=== PATIENT | male | born 1950 | race African-American/Black ===

== ENCOUNTER 2021-01-28 07:05 | Outpatient (CLI) | payer MEDICARE | END 2021-01-28 23:59 | disposition home or self-care (01) | LOC: CVU 07:05 | PROVIDERS: ATTEND Internal Medicine Cardiovascular Disease | DX: I08.2 Rheumatic disorders of both aortic and tricuspid valves (principal); I25.10 Atherosclerotic heart disease of native coronary artery without angina pectoris; I25.5 Ischemic cardiomyopathy | CPT/HCPCS: 93306; 93356 ==

== ENCOUNTER 2021-02-23 08:27 | Emergency (ER) | payer MEDICARE ==
[~2021-02-23] VITALS: Ht 180.3 cm; Wt 139.3 kg
--- NOTE | 2021-02-23 08:48 | NUR ---
Pt complains of left side neck pain starting last night, reports pain into left shoulder and left arm with moves neck. Pt denies recent trauma, sob, or CP.
--- NOTE | 2021-02-23 09:14 | NUR ---
ER [facility]ON [facility]ARA AT BEDSIDE FOR EVALUATION
[2021-02-23] MEDS ORDERED: MORPHINE SULFATE 4 MG/ML, 1ML IVPush PRN (09:30)
[2021-02-23] MEDS ORDERED: SODIUM CHLORIDE FLUSH 10ML SYR IVF ONE (09:30)
[2021-02-23] MEDS ORDERED: MORPHINE SULFATE 4 MG/ML, 1ML ONE (09:35)
[2021-02-23 09:39] LABS: BASOPHILS % (AUTO) 1 % (0-1); EOSINOPHILS % (AUTO) 0 % (1-7); LYMPHOCYTES % (AUTO) 13 % (22-44); MEAN CORPUSCULAR HEMOGLOBIN 30.7 pg (27.5-34.5); MEAN CORPUSCULAR HGB CONC 33.1 g/dL (33.2-36.2); MEAN PLATELET VOLUME 8.8 fL (7.4-10.4); MONOCYTES % (AUTO) 10 % (2-9); NEUTROPHILS % (AUTO) 76 % (42-75); PLATELET COUNT 181 x10^3/uL (130-400); RED BLOOD COUNT 4.76 x10^6/uL (4.38-5.82); RED CELL DISTRIBUTION WIDTH 14.7 % (9.4-14.8)
[2021-02-23 09:41] LABS: MD NO
[2021-02-23 09:50] LABS: ALBUMIN 3.5 g/dL (3.4-5.0); ANION GAP 3 mmol/L (5-15); CALCIUM 9.7 mg/dL (8.5-10.1); CHLORIDE 106 mmol/L (98-107); CREATININE 1.37 mg/dL (0.7-1.3)
[2021-02-23 09:54] LABS: TROPONIN I < 0.015 ng/mL (0.000-0.045)
[2021-02-23] MEDS ORDERED: DIAZEPAM 5 MG TABLET ONE (09:55)
[2021-02-23] MEDS ORDERED: DIAZEPAM 5 MG TABLET PO ONE (10:00)
[2021-02-23] MEDS ORDERED: KETOROLAC 30 MG/1 ML ONE (10:36)
[2021-02-23] MEDS ORDERED: KETOROLAC 30 MG/1 ML IM ONE (11:00)
--- NOTE | 2021-02-23 12:00 | NUR ---
Discharge instructions reviewed.
[2021-02-23 12:01] VITALS: BP 138/94
== END 2021-02-23 12:26 | disposition home or self-care (01) ==
LOC: ED 09:48
DX: S16.1XXA Strain of muscle, fascia and tendon at neck level, initial encounter (principal); Z76.0 Encounter for issue of repeat prescription; R07.89 Other chest pain; R06.02 Shortness of breath; I10 Essential (primary) hypertension; I25.2 Old myocardial infarction; X58.XXXA Exposure to other specified factors, initial encounter; Y93.89 Activity, other specified; Y92.89 Other specified places as the place of occurrence of the external cause; Y99.8 Other external cause status
CPT/HCPCS: 36415; 71045; 80048; 82040; 83880; 84484; 85025; 93005; 96372; 99285; J1885

== ENCOUNTER 2021-05-14 17:35 | Emergency (ER) | payer MEDICARE ==
[~2021-05-14] VITALS: Ht 180.3 cm; Wt 128.9 kg
[~2021-05-14 17:35] MED LIST: ATOR40TA78 PO; GABA-826 PO; INSU100I11 SQ-INSULIN; INSU100I13 SQ-INSULIN; LISI10TA19 PO; METF500T3 PO; METO-282 PO; MIRA50TA PO; ROSU5TAB12 PO; TAMS-11 PO; TRAM100T39 PO; [UNRECOGNIZED DRUG - CODE] PO
--- NOTE | 2021-05-14 19:20 | NUR ---
Pt ambulatory with steady gait from lobby to room
--- NOTE | 2021-05-14 19:40 | NUR ---
Pt arrived with complaints of high BG due to his primary care prescribing him the wrong medication, pt states that he should have Novolog and that they gave him Humalog instead. Pt said he tried to contact PCP but they have yet to return his call and sent him away from their office. Pt connected to BP and O2 monitors, positioned for comfort, BG 418 in triage. BLANCO MORFIN
[2021-05-14] MEDS ORDERED: SODIUM CHLORIDE 0.9% 1,000ML IVBOLUS ONE (21:30)
[2021-05-14 21:57] LABS: BASOPHILS % (AUTO) 1 % (0-1); EOSINOPHILS % (AUTO) 0 % (1-7); LYMPHOCYTES % (AUTO) 21 % (22-44); MEAN CORPUSCULAR HEMOGLOBIN 30.8 pg (27.5-34.5); MEAN CORPUSCULAR HGB CONC 32.9 g/dL (33.2-36.2); MEAN PLATELET VOLUME 8.8 fL (7.4-10.4); MONOCYTES % (AUTO) 10 % (2-9); NEUTROPHILS % (AUTO) 68 % (42-75); PLATELET COUNT 187 x10^3/uL (130-400); RED BLOOD COUNT 4.79 x10^6/uL (4.38-5.82); RED CELL DISTRIBUTION WIDTH 14.5 % (9.4-14.8)
[2021-05-14 22:09] LABS: ALBUMIN 3.4 g/dL (3.4-5.0); ANION GAP 4 mmol/L (5-15); CALCIUM 9.3 mg/dL (8.5-10.1); CHLORIDE 100 mmol/L (98-107); CREATININE 1.27 mg/dL (0.7-1.3)
[2021-05-14 22:11] LABS: MICROSCOPIC NOT IND
[2021-05-14 22:13] LABS: TROPONIN I < 0.015 ng/mL (0.000-0.045)
[2021-05-14] MEDS ORDERED: INSULIN LISPRO 100 UNIT/ML, 3ML VIAL SQ-INSULIN SCH (23:00)
[2021-05-14] MEDS ORDERED: INSULIN GLARGINE 100 UNITS/ML, PEN SQ-INSULIN ONE (23:00)
[2021-05-14 23:45] VITALS: BP 123/57
== END 2021-05-14 23:53 | disposition home or self-care (01) ==
LOC: ED 21:10
DX: E11.65 Type 2 diabetes mellitus with hyperglycemia (principal); R42 Dizziness and giddiness; R35.0 Frequency of micturition; H57.89 Other specified disorders of eye and adnexa; R94.31 Abnormal electrocardiogram [ECG] [EKG]; I10 Essential (primary) hypertension; Z87.891 Personal history of nicotine dependence
CPT/HCPCS: 80048; 81003; 82040; 82962; 83880; 84484; 85025; 93005; 96360; 99285; J1815; J1817; J7030

== ENCOUNTER 2021-07-14 10:14 | Outpatient (CLI) | payer MEDICARE | END 2021-07-14 23:59 | disposition home or self-care (01) | LOC: CFH 10:14 | PROVIDERS: ATTEND Physician Assistant Surgical | DX: M48.05 Spinal stenosis, thoracolumbar region (principal); M47.896 Other spondylosis, lumbar region; M25.78 Osteophyte, vertebrae | CPT/HCPCS: 72131 ==